=== PATIENT | male | born 1965 | race Caucasian/White ===

== ENCOUNTER 2024-02-26 15:33 | Outpatient (CLI) | payer OTHER, SELFPAY | END 2024-02-26 15:34 | disposition home or self-care (01) | PROVIDERS: Visit Provider Family Medicine | DX: Z00.00 Encounter for general adult medical examination without abnormal findings (principal); I10 Essential (primary) hypertension; E78.2 Mixed hyperlipidemia; Z12.5 Encounter for screening for malignant neoplasm of prostate | CPT/HCPCS: 80048; 80061; 84460; 85025; G0103 ==

== ENCOUNTER 2024-08-04 16:33 | Outpatient (CLI) | payer OTHER, SELFPAY | END 2024-08-04 16:34 | disposition home or self-care (01) | LOC: FBOREF 16:34 | PROVIDERS: PCP Family Medicine; Visit Provider Family Medicine | DX: I10 Essential (primary) hypertension (principal) | CPT/HCPCS: 80048 ==

== ENCOUNTER 2024-08-08 16:19 | Outpatient (CLI) | payer OTHER, SELFPAY ==
--- NOTE | 2024-08-08 16:45 | CRLHL7_ITS ---
For Patients: As a result of the Century Cures Act, medical imaging exams and procedure reports are released immediately into your electronic medical record. You may view this report before your referring provider. If you have questions, please contact your health care provider. Indication: Thirty-five year smoking history, lung cancer screening Technique: Noncontrast low-dose CT of the chest with multiplanar reformats. Comparison: None Findings: Lungs: There is a 6.5 millimeter nodule in the left upper lobe. There are basilar nodules present, largest in the right posteromedial costophrenic sulcus measuring 11.5 millimeters. Calcified granulomata. Mediastinum: Calcified coronary arterial and aortic atherosclerosis. Cardiomegaly. Lymph nodes: Partially calcified lymph nodes. Upper abdomen: Unremarkable. Soft tissues: Unremarkable. Bones: Mild spondylosis. Impression: 1. Multiple pulmonary nodules seen, largest measuring up to 11.5 millimeters. Recommend follow-up CT in 3 months. Alternatively, PET-CT could be considered (Lung-RADS 4A). 2. Calcified coronary arterial and aortic atherosclerosis. Please note that all CT scans at this facility use dose modulation, iterative reconstruction, and/or weight-based dosing when appropriate to reduce radiation dose to as low as reasonably achievable. Dictated by To Simpson MD @ 08/09/2024 8:03:34 PM (Electronically Signed)
== END 2024-08-08 16:20 | disposition home or self-care (01) ==
LOC: CT 16:20
PROVIDERS: PCP Family Medicine; Visit Provider Family Medicine
DX: Z12.2 Encounter for screening for malignant neoplasm of respiratory organs (principal); R91.8 Other nonspecific abnormal finding of lung field; I70.0 Atherosclerosis of aorta; I25.10 Atherosclerotic heart disease of native coronary artery without angina pectoris; F17.210 Nicotine dependence, cigarettes, uncomplicated
CPT/HCPCS: 71271

== ENCOUNTER 2024-11-10 14:58 | Outpatient (CLI) | payer OTHER, SELFPAY ==
--- NOTE | 2024-11-10 15:00 | CRLHL7_ITS ---
For Patients: As a result of the Century Cures Act, medical imaging exams and procedure reports are released immediately into your electronic medical record. You may view this report before your referring provider. If you have questions, please contact your health care provider. INDICATION: 3 MONTH FOLLOW UP FROM LUNG SCREENING. TECHNIQUE: Low-dose lung cancer screening non-contrast CT chest. Dose reduction techniques were used. COMPARISON: 08/08/2024 FINDINGS: NODULES: Decreased conspicuity of previously noted nodule within the left upper lobe, series 3, image 69, with faint residual nodular density remaining. Nodule within the right lower lobe posteriorly is unchanged and measures 10 millimeters, 3/119. Stable nodular density within the right lower lobe at the posteromedial costophrenic angle measuring 12 millimeters, 3/127. Stable small nodule within the left lower lobe measuring 4 millimeters, series 3, image 88. stable benign calcified nodules in the right lung base anteriorly. LUNGS AND PLEURA: Emphysema. Mild scarring in both lung apices. Reticulonodular scarring within the anterior lingula. MEDIASTINUM: Calcified lymph nodes are present. CORONARY ARTERY CALCIFICATION: Present. LIMITED UPPER ABDOMEN: Calcified splenic granuloma. Remainder unremarkable. MUSCULOSKELETAL: No fracture. Discogenic spurring. IMPRESSION: 1. Decreased conspicuity of previously noted left upper lobe pulmonary nodule. 2. Stable nodules elsewhere measuring up to 12 millimeters. LUNG-RADS CATEGORY: 2: Benign. RADIOLOGIST RECOMMENDATION: Continue annual screening with low-dose CT chest in 12 months. Please note that all CT scans at this facility use dose modulation, iterative reconstruction, and/or weight-based dosing when appropriate to reduce radiation dose to as low as reasonably achievable. Dictated by Ad Denis MD @ 11/11/2024 11:25:48 AM (Electronically Signed)
== END 2024-11-10 14:59 | disposition home or self-care (01) ==
LOC: CT 14:58
PROVIDERS: PCP Family Medicine; Visit Provider Family Medicine
DX: Z12.2 Encounter for screening for malignant neoplasm of respiratory organs (principal); R91.8 Other nonspecific abnormal finding of lung field; Z87.891 Personal history of nicotine dependence
CPT/HCPCS: 71250

== ENCOUNTER 2025-05-19 15:25 | Outpatient (CLI) | payer OTHER, SELFPAY | END 2025-05-19 15:26 | disposition home or self-care (01) | PROVIDERS: PCP Family Medicine; Visit Provider Family Medicine | DX: E78.2 Mixed hyperlipidemia (principal); I10 Essential (primary) hypertension | CPT/HCPCS: 80048; 80061; 84460 ==